=== PATIENT | female | born 1965 | race Caucasian/White ===

== ENCOUNTER 2017-05-16 10:07 | Emergency (ER) | payer MEDICAID ==
[2017-05-16] MEDS ORDERED: Aspirin 81 MG Tab.Chew PO ONE (10:20)
[2017-05-16 11:13] LABS: CHLORIDE,CL 103 mmol/L (98-107); SODIUM,NA 138 mmol/L (136-145)
--- NOTE | 2017-05-17 08:03 | ER ---
Date of Service: 05/16/2017 SUBJECTIVE: Danica presents to the emergency room with pain to the medial aspect of her left upper arm and paresthesia in the 2nd, 3rd, and 4th finger of the left hand. The patient states that she has not had any issues with this in the past. 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 She states that she is not experiencing any chest pain or shortness of breath. She states the discomfort again is isolated to her left upper arm. She states that she is not experiencing any discomfort or weakness in her left lower extremity or face. She states that she has not been experiencing any difficulties with speech or ambulation. PAST MEDICAL HISTORY: None. MEDICATIONS: None. ALLERGIES: Penicillin. REVIEW OF SYSTEMS: General: No fever or chills. HEENT: No sore throat, rhinorrhea, or congestion. Respiratory: No shortness of breath. Cardiac: Denies any substernal chest pain. Gastrointestinal: No nausea, vomiting, or diarrhea. No melena, hematochezia, or hematemesis. Genitourinary: Denies any dysuria. Musculoskeletal: Please see history of present illness. PHYSICAL EXAMINATION: General: This is a 51-year-old female patient, who is in no acute distress. Vital Signs: Blood pressure is 124/74, heart rate is 78, respiratory rate 12, and O2 saturations 98%. Skin: Warm, pink, and dry. HEENT: Mouth, oral mucosa is moist. Lungs: Clear to auscultation. Heart: Regular rate and rhythm. Abdomen: Soft, nontender. There is no hepatosplenomegaly noted. There is no masses noted. Extremities: Without edema. Neurologic: The patient is alert, oriented, and answers all questions appropriately. The patient's speech is fluent. Her gait is within normal limits. LABORATORY DATA: An EKG was obtained showing a sinus rhythm without any acute ST or T-wave changes. Hematology; WBCs 9.1, hemoglobin is 13.0, and platelets are 244. Coags; PT is 10.0, INR is 0.9. Chemistry; sodium is 138, potassium is 4.3, chloride is 103, bicarb is 30, BUN is 17, creatinine is 1.0. GFR is 58, glucose is 106, calcium is 8.5, corrected calcium is 9.14. Total bilirubin is 0.5, AST is 19, ALT is 27, alkaline phosphatase is 63, CK is 180, CK-MB is 2.3, troponin is less than 0.017. Total protein is 7.4, albumin is 3.2. PA and lateral chest x-ray was obtained. There was no evidence of any acute pathology. ASSESSMENT: Brachial nerve injury. PLAN: The patient will be discharged. She does have discomfort associated with this and it does appear to localize in 3 of the 5 fingers, so certainly it does appear to be a peripheral neurological issue. We will have her follow up in the clinic in the next 5 to 7 days. She is to return to the emergency room if she develops any chest pain, shortness of breath, or other worrisome signs or symptoms. All questions were answered. RINKUK: 05/16/2017 12:09:22 MODL: 05/16/2017 13:14:20 /[id number]
== END 2017-05-16 11:45 | disposition home or self-care (01) ==
LOC: VM.ED 10:07
DX: S14.3XXA Injury of brachial plexus, initial encounter (principal); Z88.0 Allergy status to penicillin; X58.XXXA Exposure to other specified factors, initial encounter
CPT/HCPCS: 36415; 80053; 82550; 82553; 84484; 85025; 85610; 93005; 99283; A9270